=== PATIENT | male | born 1945 | race Caucasian/White ===

== ENCOUNTER 2017-07-24 00:46 | Inpatient (IN) | payer BC, MEDICARE ==
[~2017-07-24] VITALS: Ht 170.2 cm; Wt 68.9 kg
[2017-07-24] VITALS (7 sets, daily range): BP systolic 54–139; BP diastolic 54–72
[~2017-07-24 00:46] MED LIST: ASPI-1152 PO; ATOR40TA PO; ISOS30TA6 PO; METO-357 PO; Nitroglycerin SL; Valsartan PO; WARF5TAB77 PO
--- NOTE | 2017-07-24 00:52 | NUR ---
PT BIBSON C/O CHEST PAIN X 30 MIN ENERGY BROKER. PT AOX3 RR EVEN AND UNLABORED. NO SOB NOTED. NO NVD AT THIS TIME. PT NOT DIAPHORETIC. PT GOWNED AND PLACED ON MONITOR WAITING FOR MD MARTI.
--- NOTE | 2017-07-24 00:58 | NUR ---
DR. DONNELLY AT BEDSIDE FOR EVAL.
[2017-07-24] MEDS ORDERED: ASPIRIN 81 MG TAB.CHEW PO ONE (01:00)
[2017-07-24] MEDS ORDERED: AMIODARONE 150 MG/3 ML VIAL IV ONE ×5 (01:00→01:37)
[2017-07-24] MEDS ORDERED: ASPIRIN 81 MG TAB.CHEW ONE (01:12)
--- NOTE | 2017-07-24 01:18 | NUR ---
TELMA BED 108
[2017-07-24 01:20] LABS: BASOPHILS % (AUTO) 0.4 % (0.0-2.0); EOSINOPHILS # (AUTO) 0.1 /CMM (0.0-0.7); EOSINOPHILS % (AUTO) 1.6 % (0.0-6.0); HEMATOCRIT 44 % (39-51); HEMOGLOBIN 15.3 g/dL (13.5-17.5); LYMPHOCYTES # (AUTO) 1.2 /CMM (0.8-4.8); LYMPHOCYTES % (AUTO) 25.5 % (20.0-44.0); MEAN CORPUSCULAR HEMOGLOBIN 31 PG (26.0-33.0); MEAN CORPUSCULAR HGB CONC 35 g/dl (31.0-36.0); MEAN CORPUSCULAR VOLUME 89 fL (80-96); MONOCYTES # (AUTO) 0.7 /CMM (0.1-1.30); MONOCYTES % (AUTO) 15.1 % (2.0-12.0); NEUTROPHILS # (AUTO) 2.6 /CMM (1.8-8.9); NEUTROPHILS % (AUTO) 57.4 % (43.0-81.0); PLATELET COUNT (AUTO) 120 /CMM (150-450); RDW COEFFICIENT OF VARIATION 13.5 (11.5-15.0); RED BLOOD CELL COUNT(AUTO) 4.92 MIL/uL (4.5-6.0); WHITE BLOOD COUNT (AUTO) 4.6 K/uL (4.3-11.0)
[2017-07-24 01:34] LABS: CALCIUM, SERUM 8.6 mg/dL (8.5-10.1); CREATININE 1.1 mg/dL (0.6-1.3); POTASSIUM 3.5 mmol/L (3.5-5.1)
[2017-07-24 01:41] LABS: TROPONIN I 0.027 ng/mL (0.00-0.056)
--- NOTE | 2017-07-24 01:46 | NUR ---
INFORMED MD CURRENT BP, ORDERS TO HOLD NITRO PASTE AT THIS TIME.
[2017-07-24 01:47] LABS: ALBUMIN 3.8 g/dL (3.4-5.0); BILIRUBIN,DIRECT 0.2 mg/dL (0.0-0.2); BILIRUBIN,TOTAL 0.5 mg/dL (0.2-1.0); TOTAL PROTEIN, SERUM 7.3 g/dL (6.4-8.2)
[2017-07-24 01:49] LABS: D-DIMER 0.21 mg/L(FEU (0.17-0.50)
--- NOTE | 2017-07-24 01:50 | NUR ---
INFORMED MD CURRENT BP, OKAY TO GIVEN NITRO PASTE.
[2017-07-24] MEDS ORDERED: MORPHINE SULFATE INJ 4 MG/ML DISP.SYRIN ONE (01:52)
[2017-07-24] MEDS ORDERED: NITROGLYCERIN PACKET 1 GM PACKET ONE (01:53)
[2017-07-24] MEDS ORDERED: NITROGLYCERIN PACKET 1 GM PACKET TD ONE (02:00)
[2017-07-24] MEDS ORDERED: IV NS 0.9% 500 ML BAG IV ONE (02:00)
[2017-07-24] MEDS ORDERED: MORPHINE SULFATE INJ 2 MG/ML DISP.SYRIN IV ONE (02:00)
--- NOTE | 2017-07-24 02:15 | NUR ---
REPORT GIVEN TO ANDREEA FIELDS FOR KEERTHI / TELMA BED 108
[2017-07-24 02:19] LABS: LYMPHOCYTES % (MANUAL) 22 % (16-48); MONOCYTES % (MANUAL) 16 % (0-11.0); NEUTROPHILS % (MANUAL) 62 (42-76)
--- NOTE | 2017-07-24 02:24 | NUR ---
ER MD DONNELLY AT BEDSIDE SPEAKING TO PT/FAMILY
--- NOTE | 2017-07-24 02:24 | NUR ---
MD AWARE OF CURRENT BP, DR. DONNELLY AT BEDSIDE FOR EVAL.
--- NOTE | 2017-07-24 02:26 | NUR ---
PER DR. DONNELLY TO REMOVE NITRO PATCH AT THIS TIME.
[2017-07-24] MEDS ORDERED: HYDROCODONE/APAP 5/325MG 1 EACH TABLET PO PRN (02:30)
[2017-07-24] MEDS ORDERED: MAG HYDROX/AL HYDROX/SIMETH 30 ML UDC PO PRN (02:30)
[2017-07-24] MEDS ORDERED: ACETAMINOPHEN 325 MG TABLET PO PRN (02:30)
[2017-07-24] MEDS ORDERED: ONDANSETRON HCL/PF 4 MG/2 ML VIAL IVP PRN (02:30)
[2017-07-24] MEDS ORDERED: Z GUARD REMEDY 2 OZ OINT TP PRN (02:30)
[2017-07-24] MEDS ORDERED: MORPHINE SULFATE INJ 4 MG/ML DISP.SYRIN IV PRN (02:30)
[2017-07-24] MEDS ORDERED: MAGNESIUM HYDROXIDE 30 ML UDC PO PRN (02:30)
--- NOTE | 2017-07-24 02:40 | NUR ---
RN TELMA ADMITTING NOTE RECEIVED 72 YR OLD MALE FROM ER, C/C, CP, TX IN AMIODARONE DRIP 150 BOLUS, ASA AND NITRO PATCH, D/T AFIB W/RVR. AOX4 W/ SON TO TRANSLATE, KOREAN SPEAKING WITH LITTLE BOLIVIAN. ON NC@ 2L, WELL ANGIE, DENIES ANY CP OR DISCOMFORT. UPON ARRIVAL TO THE UNIT, EKG MONITORING CONVERTED TO NSR BP 104/60 60 97.8 97% 18. METOPROLOL DOSE HELD, WITH LOVENOX 70MG GIVEN PER PHARMACY RECOMMENDATION. ASSESSMENT DONE, NO SKIN ISSUES NOTED, WITH RAC 18G SL, DR LU ADMITTING, ALL ORDERS ENTERED PER PROTOCOL. SAFETY MEASURES IN PLACE PT APPEARS COMFORTABLE. WILL CONT TO MONITOR.
--- NOTE | 2017-07-24 02:50 | NUR ---
PT TRANSFERRED PER ACLS PROTOCOL.
[2017-07-24] MEDS: METOPROLOL SUCCINATE 50 MG TAB.SR.24H PO SCH ×2 (03:00→08:48)
[2017-07-24] MEDS ORDERED: ENOXAPARIN SODIUM 80 MG/0.8 ML DISP.SYRIN SQ ONE (04:00)
--- NOTE | 2017-07-24 05:59 | NUR ---
RN TELMA CLOSING NOTE ENDORSED PT ASLEEP IN BED, VS STABLE, NO C/O OF CP OR DISCOMFORT, ALL NEEDS MET, CONT ON NC@ 2L,NO SOB, ALL NEEDS MET, WILL ENDORSE TO AM SHIFT NURSE TO F/U ON ALL TESTS DONE.
[2017-07-24] MEDS ORDERED: NITROGLYCERIN 0.4 MG/TAB BOTTLE SL PRN (06:30)
--- NOTE | 2017-07-24 07:30 | NUR ---
TELMA RN AM NOTES RECEIVED PT IN BED, ASLEEP, AROUSES TO NAME, AAO X 4, SRI LANKAN SPEAKING SOME GERMAN, ON 2L O2 NC, NOT IN ANY DISTRESS. TELEMETRY READS SB HR 51, DENIES ANY CHEST PAIN OR DISCOMFORT AT THIS TIME, RAC G 18 HL FLUSHES WELL, SITE CLEAR, AMBULATORY, CARDIAC DIET, NO SKIN ISSUES, SAFETY MEASURES, CALL LIGHT WITHIN REACH, BED LOW LOCKED, WILL CONT TO MONITOR.
[2017-07-24] MEDS: ASPIRIN EC 81 MG TABLET.DR PO SCH (08:46)
[2017-07-24] MEDS: ATORVASTATIN 40 MG TABLET PO SCH (08:46)
[2017-07-24] MEDS ORDERED: ISOSORBIDE MONONITRATE (30MG) 30 MG TAB.SR.24H PO SCH (09:00)
[2017-07-24] MEDS ORDERED: METOPROLOL SUCCINATE 50 MG TAB.SR.24H PO SCH (09:00)
[2017-07-24] MEDS ORDERED: VALSARTAN 80 MG TABLET PO SCH (09:00)
--- NOTE | 2017-07-24 09:30 | NUR ---
TELMA RN NOTES DUE MEDS GIVEN EXCEPT BP MED, BP INITIALLY 94/54. RECHECKED AFTER BREAKFAST BP 93/48.
[2017-07-24] MEDS ORDERED: IV NS 0.9% 500 ML IV ONE (15:00)
--- NOTE | 2017-07-24 15:00 | NUR ---
TELMA RN NOTES NS 500 ML BOLUS GIVEN PER DR. KOENIG TROPONIN LAB ORDERED.
--- NOTE | 2017-07-24 16:00 | NUR ---
TELMA RN NOTES DR. KOENIG AND DR. WILDE AWARE - TROPONIN LEVEL 0.[address] KOENIG HE ALREADY SPOKE WITH DR. WILDE AND THAT PATIENT FOR POSSIBLE CARDIAC CATH ON THURSDAY. PLACED AN ORDER FOR CASE MANAGEMENT TO ARRANGE FOR CARDIAC CATHETERIZATION.
[2017-07-24] MEDS: METOPROLOL TARTRATE 25 MG TABLET PO SCH (16:34)
[2017-07-24] MEDS ORDERED: WARFARIN SODIUM 5 MG TABLET PO SCH (17:00)
--- NOTE | 2017-07-24 18:30 | NUR ---
TELMA RN CLOSING NOTES PT IN BED, RESTING COMFORTABLY, SON AT BEDSIDE, AAO X 4, PUERTO RICAN SPEAKING SOME YI, ON 2L O2 NC, NOT IN ANY DISTRESS. TELEMETRY READS SR HR 78, DENIES ANY CHEST PAIN OR DISCOMFORT AT THIS TIME, RAC G 18 HL FLUSHES WELL, SITE CLEAR, AMBULATORY, CARDIAC DIET, NO SKIN ISSUES, SAFETY MEASURES, CALL LIGHT WITHIN REACH, BED LOW LOCKED, PM CARE ATTENDED, ALL NEEDS MET, NO OTHER SIGNIFICANT CHANGE IN CONDITION. WILL ENDORSE TO NEXT SHIFT KEERTHI.
--- NOTE | 2017-07-24 19:20 | NUR ---
TELMA RN PM NOTE RECEIVED PATIENT SLEEPING IN BED EASILY AROUSABLE, AOX4, ABLE TO MAKE NEEDS KNOWN, MALTESE SPEAKING, NO CARDIAC OR RESPIRATORY DISTRESS, ON ROOM AIR. ON GEOMETRY PROFESSOR TELEMETRY SR 60. NO PAIN REPORTED. RAC #18G PATENT, FLUSHES WELL, SITE CDI, AMBULATORY REINFORCED USE OF CALL LIGHT AND SAFETY. BED IN LOCKED LOW POSITION. WILL CONTINUE TO MONITOR FOR ANY CHANGE OF CONDITION.
[2017-07-24] MEDS ORDERED: ENOXAPARIN SODIUM 80 MG/0.8 ML DISP.SYRIN SQ SCH (21:00)
[2017-07-24] MEDS: ENOXAPARIN SODIUM 80 MG/0.8 ML DISP.SYRIN SQ SCH (21:15)
[2017-07-25] VITALS: BP 146/78
[2017-07-25 04:00] VITALS: BP 139/74
--- NOTE | 2017-07-25 06:22 | NUR ---
TELMA RN CLOSING NOTE PATIENT CONTINUES TO REST COMFORTABLY IN BED, AROUSABLE TO VOICE, DENIES ANY PAIN, REFUSED PAIN MEDICATION, TROPONIN TRENDING DOWN. AMBULATORY BRP, RAC #18G PATENT, FLUSHING WELL, CDI. TELEMETRY SR 66, NO CARDIAC OR RESPIRATORY DISTRESS. SAFETY MAINTAINED AT ALL TIMES, WILL REPORT TO RN FOR CONTINUITY OF CARE.
[2017-07-25 07:16] LABS: BASOPHILS % (AUTO) 0.4 % (0.0-2.0); EOSINOPHILS % (AUTO) 0.6 % (0.0-6.0); HEMATOCRIT 40 % (39-51); HEMOGLOBIN 14.1 g/dL (13.5-17.5); LYMPHOCYTES # (AUTO) 1.1 /CMM (0.8-4.8); LYMPHOCYTES % (AUTO) 25.3 % (20.0-44.0); MEAN CORPUSCULAR HEMOGLOBIN 32 PG (26.0-33.0); MEAN CORPUSCULAR HGB CONC 35 g/dl (31.0-36.0); MEAN CORPUSCULAR VOLUME 89 fL (80-96); MONOCYTES # (AUTO) 0.5 /CMM (0.1-1.30); MONOCYTES % (AUTO) 10.5 % (2.0-12.0); NEUTROPHILS # (AUTO) 2.8 /CMM (1.8-8.9); NEUTROPHILS % (AUTO) 63.2 % (43.0-81.0); PLATELET COUNT (AUTO) 102 /CMM (150-450); RDW COEFFICIENT OF VARIATION 13.4 (11.5-15.0); RED BLOOD CELL COUNT(AUTO) 4.48 MIL/uL (4.5-6.0); WHITE BLOOD COUNT (AUTO) 4.5 K/uL (4.3-11.0)
--- NOTE | 2017-07-25 07:30 | NUR ---
RN INITIAL NOTE RECEIVED PT IN NO ACUTE DISTRESS IN BED. PT IS A/O X 4 AND ABLE TO MAKE NEEDS KNOWN. PT IS ON RA AND TOLERATING WELL WITH O2 SAT @ 96%. PT IS ON TELE WITH SR ON THE MONITOR. PT IS NOT C/O ANY SOB, DIFFICULTY BREATHING OR PAIN AT THIS TIME. PT ABLE TO AMBULATE TO RESTROOM WITH A STEADY GAIT. PT HAS RAC 18G THAT IS CLEAN DRY INTACT AND PATENT WITH SALINE FLUSH. ALL NEEDS MET, ALL ORDERS CARRIED OUT. WILL CONTINUE TO MONITOR PT.
[2017-07-25 07:37] LABS: CALCIUM, SERUM 8.4 mg/dL (8.5-10.1); MAGNESIUM 1.9 mg/dL (1.8-2.4); PHOSPHORUS 2.8 mg/dL (2.5-4.9); POTASSIUM 3.9 mmol/L (3.5-5.1)
[2017-07-25 08:00] VITALS: BP 122/65
[2017-07-25] MEDS: ATORVASTATIN 40 MG TABLET PO SCH (08:40)
[2017-07-25] MEDS: ASPIRIN EC 81 MG TABLET.DR PO SCH (08:41)
[2017-07-25] MEDS: METOPROLOL TARTRATE 25 MG TABLET PO SCH (08:43)
[2017-07-25] MEDS: ENOXAPARIN SODIUM 80 MG/0.8 ML DISP.SYRIN SQ SCH (08:43)
[2017-07-25 12:00] VITALS: BP 128/66
--- NOTE | 2017-07-25 15:36 | NUR ---
RN NOTE GAVE REPORT TO [facility] RN FOR CONTINUITY OF CARE. AWAITING AMBULANCE PICKUP.
[2017-07-25 16:00] VITALS: BP 144/68
--- NOTE | 2017-07-25 16:22 | NUR ---
REPORT GIVEN TO LORRAINE DORAN FOR CONTINUITY OF CARE.
== END 2017-07-25 16:52 | disposition short-term general hospital (02) | DRG 190 ==
LOC: ER 00:50 → TELE-TD 02:17
PROVIDERS: ADMIT Internal Medicine; ATTEND Internal Medicine
DX: I21.4 Non-ST elevation (NSTEMI) myocardial infarction (principal); I50.31 Acute diastolic (congestive) heart failure; D68.59 Other primary thrombophilia; I42.1 Obstructive hypertrophic cardiomyopathy; D69.6 Thrombocytopenia, unspecified; I48.0 Paroxysmal atrial fibrillation; F17.210 Nicotine dependence, cigarettes, uncomplicated; I25.10 Atherosclerotic heart disease of native coronary artery without angina pectoris; Z79.01 Long term (current) use of anticoagulants; Z98.61 Coronary angioplasty status; I11.0 Hypertensive heart disease with heart failure
CPT/HCPCS: 36415; 71045-TC; 80048-TC; 80076-TC; 83735-TC; 83880; 84100-TC; 84484-TC; 85025-TC; 85378-TC; 85730-TC; 87081-TC; 93307-TC; A4606; J0282; J1650; J2270; J7030; J7040; Z7610

== ENCOUNTER 2017-09-22 16:35 | Inpatient (IN) | payer BC, MEDICARE ==
[~2017-09-22] VITALS: Ht 170.2 cm; Wt 61.2 kg
[2017-09-22] MEDS ORDERED: ONDANSETRON HCL/PF 4 MG/2 ML VIAL ONE (16:55)
[2017-09-22] MEDS ORDERED: METOPROLOL TARTRATE INJ 5 MG/5 ML AMPUL ONE ×2 (16:55→17:14)
[2017-09-22] MEDS ORDERED: METOPROLOL TARTRATE INJ 5 MG/5 ML AMPUL IV ONE ×2 (17:00→17:30)
[2017-09-22] MEDS ORDERED: ONDANSETRON HCL/PF 4 MG/2 ML VIAL IVP ONE (17:00)
[2017-09-22] MEDS ORDERED: IV NS 0.9% 1,000 ML BAG IV ONE (17:00)
[2017-09-22 17:02] LABS: BASOPHILS % (AUTO) 0.7 % (0.0-2.0); EOSINOPHILS % (AUTO) 2.7 % (0.0-6.0); HEMATOCRIT 46 % (39-51); HEMOGLOBIN 15.7 g/dL (13.5-17.5); LYMPHOCYTES # (AUTO) 2.4 /CMM (0.8-4.8); LYMPHOCYTES % (AUTO) 35.3 % (20.0-44.0); MEAN CORPUSCULAR HGB CONC 34 g/dl (31.0-36.0); MEAN CORPUSCULAR VOLUME 88 fL (80-96); MONOCYTES # (AUTO) 0.6 /CMM (0.1-1.30); NEUTROPHILS # (AUTO) 3.7 /CMM (1.8-8.9); NEUTROPHILS % (AUTO) 52.3 % (43.0-81.0); PLATELET COUNT (AUTO) 157 /CMM (150-450); RDW COEFFICIENT OF VARIATION 13.3 (11.5-15.0); WHITE BLOOD COUNT (AUTO) 6.9 K/uL (4.3-11.0)
[2017-09-22 17:12] LABS: CALCIUM, SERUM 8.7 mg/dL (8.5-10.1); POTASSIUM 3.7 mmol/L (3.5-5.1)
[2017-09-22 17:15] LABS: INR 0.95 (0.85-1.15)
[2017-09-22 17:21] LABS: TROPONIN I 0.052 ng/mL (0.00-0.056)
[2017-09-22] MEDS ORDERED: AMLO5TAB7 PO (17:33)
[2017-09-22] MEDS ORDERED: APIX5TAB PO (17:33)
[2017-09-22] MEDS ORDERED: METO25TA6 PO (17:33)
[2017-09-22] MEDS ORDERED: TICA90TA PO (17:33)
[2017-09-22] MEDS ORDERED: FAMO40TA7 PO (17:33)
[2017-09-22] MEDS ORDERED: VALS160T2 PO (17:33)
[2017-09-22] MEDS ORDERED: FLEC50TA2 PO (17:33)
[2017-09-22] MEDS ORDERED: DILTIAZEM HCL 50 MG IV ONE ×2 (17:36→19:42)
[2017-09-22] MEDS ORDERED: ASPIRIN 81 MG TAB.CHEW PO ONE (18:00)
[2017-09-22] MEDS ORDERED: DILTIAZEM HCL 25 MG IV IV ONE ×2 (18:00→20:00)
[2017-09-22] MEDS ORDERED: ASPIRIN 81 MG TAB.CHEW ONE (18:02)
[2017-09-22 18:25] LABS: BILIRUBIN,DIRECT 0.1 mg/dL (0.0-0.2); BILIRUBIN,TOTAL 0.5 mg/dL (0.2-1.0); TOTAL PROTEIN, SERUM 7.5 g/dL (6.4-8.2)
[2017-09-22] MEDS ORDERED: MAG HYDROX/AL HYDROX/SIMETH 30 ML UDC PO PRN (20:00)
[2017-09-22] MEDS ORDERED: HYDROCODONE/APAP 5/325MG 1 EACH TABLET PO PRN (20:00)
[2017-09-22] MEDS ORDERED: ZOLPIDEM TARTRATE 5 MG TABLET PO PRN (20:00)
[2017-09-22] MEDS ORDERED: ACETAMINOPHEN 325 MG TABLET PO PRN (20:00)
[2017-09-22] MEDS ORDERED: ONDANSETRON HCL/PF 4 MG/2 ML VIAL IVP PRN (20:00)
[2017-09-22] MEDS ORDERED: Z GUARD REMEDY 2 OZ OINT TP PRN (20:00)
[2017-09-22] MEDS ORDERED: MAGNESIUM HYDROXIDE 30 ML UDC PO PRN (20:00)
[2017-09-22] MEDS ORDERED: METOCLOPRAMIDE HCL 10 MG/2 ML VIAL ONE (20:14)
[2017-09-22] MEDS ORDERED: METOCLOPRAMIDE HCL 10 MG/2 ML VIAL IV SCH (20:30)
[2017-09-22 20:53] VITALS: BP 107/63
[2017-09-22] MEDS: FUROSEMIDE 40 MG/4 ML VIAL IV SCH (21:27)
[2017-09-22] MEDS ORDERED: ATORVASTATIN 40 MG TABLET PO SCH (22:00)
[2017-09-23] VITALS: BP 123/67
[2017-09-23] MEDS ORDERED: ENOXAPARIN SODIUM 60 MG/0.6 ML DISP.SYRIN SQ SCH (01:00)
[2017-09-23 04:00] VITALS: BP 111/55
[2017-09-23 06:42] LABS: BASOPHILS % (AUTO) 0.6 % (0.0-2.0); EOSINOPHILS % (AUTO) 2.6 % (0.0-6.0); HEMATOCRIT 42 % (39-51); HEMOGLOBIN 14.4 g/dL (13.5-17.5); LYMPHOCYTES # (AUTO) 2.3 /CMM (0.8-4.8); MEAN CORPUSCULAR HGB CONC 34 g/dl (31.0-36.0); MEAN CORPUSCULAR VOLUME 89 fL (80-96); MONOCYTES # (AUTO) 0.6 /CMM (0.1-1.30); MONOCYTES % (AUTO) 8.5 % (2.0-12.0); NEUTROPHILS # (AUTO) 3.8 /CMM (1.8-8.9); NEUTROPHILS % (AUTO) 55.3 % (43.0-81.0); PLATELET COUNT (AUTO) 143 /CMM (150-450); RDW COEFFICIENT OF VARIATION 14.1 (11.5-15.0); RED BLOOD CELL COUNT(AUTO) 4.72 MIL/uL (4.5-6.0); WHITE BLOOD COUNT (AUTO) 6.8 K/uL (4.3-11.0)
[2017-09-23 07:04] LABS: CALCIUM, SERUM 8.9 mg/dL (8.5-10.1); PHOSPHORUS 3.8 mg/dL (2.5-4.9); POTASSIUM 3.7 mmol/L (3.5-5.1)
[2017-09-23 07:05] LABS: THYROID STIMULATING HORMONE 1.165 uIU/mL (0.358-3.74)
[2017-09-23 07:37] LABS: MAGNESIUM 1.9 mg/dL (1.8-2.4)
[2017-09-23 08:00] VITALS: BP 119/55
[2017-09-23] MEDS: FUROSEMIDE 40 MG/4 ML VIAL IV SCH (08:35)
[2017-09-23] MEDS ORDERED: TICAGRELOR 90 MG TABLET PO SCH (09:00)
[2017-09-23] MEDS ORDERED: VALSARTAN 80 MG TABLET PO SCH (09:00)
[2017-09-23] MEDS ORDERED: ASPIRIN EC 81 MG TABLET.DR PO SCH (09:00)
[2017-09-23] MEDS ORDERED: METOPROLOL TARTRATE 25 MG TABLET PO SCH (09:00)
[2017-09-23] MEDS: AMIODARONE HCL 200 MG TABLET PO SCH ×2 (10:26→13:13)
[2017-09-23 12:13] VITALS: BP 119/55
[2017-09-23 13:13] VITALS: BP 110/60
[2017-09-23] MEDS ORDERED: APIXABAN 5 MG TABLET PO SCH (17:00)
== END 2017-09-23 15:30 | disposition left against medical advice (07) | DRG 194 ==
LOC: ER 16:37 → TELE1 20:04
DX: I11.0 Hypertensive heart disease with heart failure (principal); I21.A1 Myocardial infarction type 2; D68.59 Other primary thrombophilia; I48.91 Unspecified atrial fibrillation; I50.33 Acute on chronic diastolic (congestive) heart failure; I25.10 Atherosclerotic heart disease of native coronary artery without angina pectoris; F17.210 Nicotine dependence, cigarettes, uncomplicated; I48.0 Paroxysmal atrial fibrillation; Z79.01 Long term (current) use of anticoagulants; Z98.61 Coronary angioplasty status
CPT/HCPCS: 36415; 71045-TC; 80048-TC; 80061-TC; 80076-TC; 83735-TC; 83880; 84100-TC; 84443-TC; 84484-TC; 85025-TC; 85730-TC; 87081-TC; A4606; C1751; J1650; J1940; J2405; J2765; J3490; J7030; J7040; Z7610

== ENCOUNTER 2022-04-09 11:53 | Inpatient (IN) | payer MEDICARE, OTHER ==
[~2022-04-09] VITALS: Ht 172.7 cm; Wt 65.8 kg
[~2022-04-09 11:53] MED LIST changes: +AMLO-212 PO; +APIX5TAB PO; -ASPI-1152 PO; +ASPI-1420 PO; +FAMO40TA7 PO; +FLEC50TA2 PO; -ISOS30TA6 PO; -METO-357 PO; +METO25TA6 PO; -Nitroglycerin SL; +TICA90TA PO; +VALS160T2 PO; -Valsartan PO; -WARF5TAB77 PO
--- NOTE | 2022-04-09 12:06 | NUR ---
TECH AT BEDSIDE FOR EKG
--- NOTE | 2022-04-09 12:08 | NUR ---
COVID SWAB COLLECTED AND SENT TO LAB
[2022-04-09] MEDS ORDERED: LATA2.5D15 EACHEYE (12:13)
[2022-04-09] MEDS ORDERED: FERR325T24 PO (12:13)
[2022-04-09] MEDS ORDERED: DICL100G34 TP (12:13)
[2022-04-09] MEDS ORDERED: LOSA100T31 PO (12:13)
[2022-04-09] MEDS ORDERED: DORZ10DR10 EACHEYE (12:13)
[2022-04-09] MEDS ORDERED: PANT40TA49 PO (12:13)
[2022-04-09] MEDS ORDERED: GABA-532 PO (12:13)
[2022-04-09] MEDS ORDERED: IV SET PRIMARY PUMP SET 1 EA INFUS.SET MC ONE (12:17)
[2022-04-09] MEDS ORDERED: MIDAZOLAM HCL 2 MG/2ML VIAL ONE ×2 (12:17→15:50)
[2022-04-09] MEDS ORDERED: IODIXANOL 150 ML IV ONE (12:17)
[2022-04-09] MEDS ORDERED: FENTANYL PF 100MCG/2ML AMPUL ONE ×2 (12:17→15:49)
[2022-04-09] MEDS ORDERED: IV NS 0.9% 1,000 ML ONE (12:17)
[2022-04-09] MEDS ORDERED: LIDOCAINE HCL/MPF 1% 30 ML VIAL IJ ONE (12:18)
[2022-04-09] MEDS ORDERED: NITROGLYCERIN IN 5 % DEXTROSE 250 ML IV ONE (12:18)
[2022-04-09 12:20] LABS: BASOPHILS % (AUTO) 0.5 % (0.0-2.0); EOSINOPHILS % (AUTO) 1.7 % (0.0-6.0); HEMATOCRIT 47 % (39-51); HEMOGLOBIN 15.7 g/dL (13.5-17.5); LYMPHOCYTES # (AUTO) 1.1 K/uL (0.8-4.8); MEAN CORPUSCULAR HGB CONC 33 g/dl (31.0-36.0); MEAN CORPUSCULAR VOLUME 91 fL (80-96); MONOCYTES # (AUTO) 0.6 K/uL (0.1-1.30); MONOCYTES % (AUTO) 7.7 % (2.0-12.0); NEUTROPHILS # (AUTO) 5.6 K/uL (1.8-8.9); NEUTROPHILS % (AUTO) 75.1 % (43.0-81.0); PLATELET COUNT (AUTO) 180 K/uL (150-450); RED BLOOD CELL COUNT(AUTO) 5.17 MIL/uL (4.5-6.0); WHITE BLOOD COUNT (AUTO) 7.4 K/uL (4.3-11.0)
[2022-04-09 12:30] LABS: CALCIUM, SERUM 9.3 mg/dL (8.5-10.1); CARBON DIOXIDE 33 mmol/L (21-32); CHLORIDE 105 mmol/L (98-107); GLUCOSE 92 mg/dL (74-106); POTASSIUM 4.6 mmol/L (3.5-5.1); SODIUM SERUM 140 mmol/L (136-145); UREA NITROGEN, BLOOD 14 mg/dL (7-18)
--- NOTE | 2022-04-09 13:29 | NUR ---
CALLED NURSING SUP FOR BED, MOVE SHEET SUBMITTED.
--- NOTE | 2022-04-09 13:43 | NUR ---
GOT BED 304-1. RN WILL BE SHA.
--- NOTE | 2022-04-09 13:54 | NUR ---
PT REPORT GIVEN TO ANDREEA BLAIR
[2022-04-09] MEDS ORDERED: MORPHINE SULFATE INJ 2 MG/ML DISP.SYRIN IV PRN (15:00)
[2022-04-09] MEDS ORDERED: NITROGLYCERIN 0.4 MG/TAB BOTTLE SL PRN (15:00)
--- NOTE | 2022-04-09 15:33 | NUR ---
PT TAKEN TO EQUIPMENT SUPERINTENDENT VIA GURNEY ACCOMPANIED BY 2 NURSES; WILL PROCEED TO 304-1 WHEN PT IS STABLE S/P EQUIPMENT SUPERINTENDENT PROCEDURE. ENDORSEMENT GIVEN TO KERLINE, EQUIPMENT SUPERINTENDENT RN.
[2022-04-09 17:00] VITALS: BP 148/72
[2022-04-09] MEDS ORDERED: APIXABAN 5 MG TABLET PO SCH (17:00)
[2022-04-09] MEDS ORDERED: GABAPENTIN 100 MG CAPSULE PO SCH (17:00)
[2022-04-09] MEDS ORDERED: DORZOLAMIDE OPTH 2% 10 ML BOTTLE EACHEYE SCH (17:00)
[2022-04-09] MEDS ORDERED: METOPROLOL TARTRATE 25 MG TABLET PO SCH (17:00)
--- NOTE | 2022-04-09 17:00 | NUR ---
RN NOTES: PATIENT ARRIVED TO MED SURG VIA GURNEY ACCOMPANIED BY CIVIL ENGINEERING PROJECT MANAGER RN. AWAKE, ALERT AND ORIENTED X 4 CROATIAN SPEAKER BUT ABLE TO COMMUNICATE AND SPEAK CYMRO. NO SOB OR CARDIAC DISTRESS NOTED, DENIES ANY PAIN AT THIS TIME,ON STRIPPING SHOVEL OPERATOR WITH CURRENT READING SINUS DAVE @53 BPM. VS 148/72, HR 52 BPM, RR 18, O2 SAT 98% ON ROOM AIR, TEMP 98.1F. BELONGINGS AT BED SIDE SECURED. PATIENT ABLE TO TOLERATE WATER. ORIENTED TO UNIT, STAFF AND ROOM MATE. SAFETY PRECAUTIONS INITIATED: BED LOCKED AND IN LOWEST POSITION SIDE RAILS UP. CALL LIGHT IN EASY REACH.
--- NOTE | 2022-04-09 17:05 | NUR ---
RN NOTES: PATIENT WILL BE DC HOME, WILL MONITOR AND REMOVE AIR FROM TR BAND PER LATHE SPOTTER RN WILL START TO REMOVE AIR @1841PM AND REMOVE AIR EVERY 15MINS UNTIL THE AIR IS GONE AND MONITOR VITAL SIGNS AND GIVE DC PAPERS TO PT. PT IS EATING HIS DINNER AND TOOK HIS PM MEDS AND EYE DROPS. PT DENIES PAIN AT THIS TIME, NO BLEEDING NOTED ON TR BAND. PT IS COMFORTABLE IN HIS BED. WILL MONITOR ACCORDINGLY.
--- NOTE | 2022-04-09 17:10 | NUR ---
RN NOTES: RECEIVED PATIENT WITH DC ORDER FROM DR LAMAR.
[2022-04-09 18:11] VITALS: BP 128/71
[2022-04-09 18:40] VITALS: BP 115/66
[2022-04-09 18:57] VITALS: BP 108/61
[2022-04-09 19:10] VITALS: BP 111/63
--- NOTE | 2022-04-09 19:21 | NUR ---
STARTED TO REMOVE AIR FROM TR BAND 3CC AT AROUND 1840, PATIENT TOLERATED WELL, NO BLEEDING NOTED ON RIGHT HAND VS BP 115/66 HR 57 RR 17 O2 SAT 98%. DENIES ANY PAIN AT THIS TIME. @1855 108/61, HR 59, RR 18, O2 SAT 97%, NO PAIN. @1910 VS BP 111/61,HR 58,RR 17,O2 SAT 97% AND NO PAIN. ENDORSED TO HURRICANE TRACKER FOR CONTINUITY OF CARE.
--- NOTE | 2022-04-09 19:30 | NUR ---
RECRUITER OPENING NOTE RECEIVED PATIENT IN BED; AWAKE, ALERT AND ORIENTED X 4. FILIP[place] SPEAKING. ON ROOM AIR; TOLERATING WELL. BREATHING EVEN AND NONLABORED. NOT IN ANY FORM OF RESPIRATORY DISTRESS. DENIES ANY PAIN OR DISCOMFORT AT THIS TIME. ON TELEMETRY MONITORING WITH READING OF SINUS BRADYCARDIA HR-54 BPM. WITH IV ACCESS ON LEFT FOREARM 20G; PATENT, INTACT AND SALINE LOCKED. WITH TR BAND ON RIGHT RADIAL ARTERY; PATENT AND INTACT. NO BLEEDING NOTED. ABLE TO MAKE NEEDS KNOWN. SAFETY PRECAUTIONS IMPLEMENTED: CALL LIGHT AND TABLE WITHIN REACH, SIDE RAILS UP X 2, BED IN LOWEST LOCKED POSITION. WILL CONTINUE PLAN OF CARE.
[2022-04-09 20:00] VITALS: BP 110/57
--- NOTE | 2022-04-09 21:32 | NUR ---
COTTON MACHINE OPERATORLEVEL VIAL SETTER NOTE WITH ORDER FOR DISCHARGE TO HOME. DISCHARGE INSTRUCTIONS AND EDUCATION PROVIDED TO PATIENT WITH SISTER. EXPLAINED MEDICATIONS TO TAKE AT HOME. PATIENT VERBALIZED UNDERSTANDING. DISCHARGE FORM AND BELONGINGS LIST FORM SIGNED BY PATIENT. ALL BELONGINGS ACCOUNTED FOR. NAME WRIST BAND, TR BAND AND IV LINE REMOVED. PRESSURE DRESSING DONE. INSTRUCTED PATIENT NOT TO DRIVE FOR 24 HOURS AND AVOID LIFTING 10 LBS OBJECT ON RIGHT HAND. DISCHARGED PATIENT STABLE ACCOMPANIED TO THE LOBBY VIA WHEELCHAIR. PATIENT WAS PICKED UP BY SISTER MARES. CHARGE NURSE AND MD AWARE OF THE DISCHARGE.
[2022-04-09] MEDS ORDERED: ATORVASTATIN 40 MG TABLET PO SCH (22:00)
[2022-04-09] MEDS ORDERED: LATANOPROST EYE DROP 0.005% 2.5 ML BOTTLE EACHEYE SCH (22:00)
[2022-04-10] MEDS ORDERED: PANTOPRAZOLE 40 MG TABLET.DR PO SCH (07:30)
[2022-04-10] MEDS ORDERED: LOSARTAN POTASSIUM 50 MG TABLET PO SCH (09:00)
[2022-04-10] MEDS ORDERED: FERROUS SULFATE (325 MG) 325 MG/TAB TABLET PO SCH (09:00)
[2022-04-10] MEDS ORDERED: AMLODIPINE BESYLATE 5 MG TABLET PO SCH (09:00)
== END 2022-04-09 21:32 | disposition home or self-care (01) | DRG 287 ==
LOC: ER 12:14 → TELE 14:03
PROVIDERS: ADMIT Internal Medicine; ATTEND Internal Medicine
PROC: 4A023N7 Measurement of Cardiac Sampling and Pressure, Left Heart, Percutaneous Approach (ICD-10-PCS; principal; 2022-04-09)
PROC: B211YZZ Fluoroscopy of Multiple Coronary Arteries using Other Contrast (ICD-10-PCS; 2022-04-09)
DX: I25.110 Atherosclerotic heart disease of native coronary artery with unstable angina pectoris (principal); Z95.5 Presence of coronary angioplasty implant and graft; I10 Essential (primary) hypertension; I48.91 Unspecified atrial fibrillation; Z79.01 Long term (current) use of anticoagulants; Z79.899 Other long term (current) drug therapy; Z82.49 Family history of ischemic heart disease and other diseases of the circulatory system; Z20.822 Contact with and (suspected) exposure to COVID-19
CPT/HCPCS: 36415; 71045-TC; 80048-TC; 84484-TC; 85025-TC; 85610-TC; C1887; C9803; G0378; G0500; J1644; J2250; J3010; J3490; J7030; Q9967